=== PATIENT | male | born 1975 | race Caucasian/White ===

== ENCOUNTER → 2020-02-13 | Outpatient (CLI) | payer BC ==
[~2020-02-13] MED LIST: IOHEXOL 300 MG/ML 100ML VIAL. IV ONE
--- NOTE | 2020-02-13 08:43 | KCIC ---
EXAM: Orbital CT with intravenous contrast. HISTORY: Right-sided facial numbness and vision changes. TECHNIQUE: Computed tomographic images of the orbits were obtained following the demonstration of intravenous contrast. *One or more of the following individualized dose reduction techniques were utilized for this examination: 1. Automated exposure control. 2. Adjustment of the mA and/or kV according to patient size. 3. Use of iterative reconstruction technique. COMPARISON: None. FINDINGS: The globes, lenses, extraocular muscles and optic nerves are unremarkable. There is no infiltration of the retrobulbar fat. No orbital mass is seen. No convincing cellulitis is seen. There are small left and tiny right maxillary sinus mucous retention cysts. There is minimal maxillary sinus mucosal thickening. The ostiomeatal units are patent. There is no significant nasal septal deviation. The mastoid air cells are clear. The temporomandibular joints are intact. The visualized portions the brain demonstrate no mass effect or midline shift. There is no hydrocephalus. No suspicious enhancing lesion is seen. IMPRESSION: 1. No acute finding or CT correlate for reported right-sided facial numbness and vision changes. 2. Mild left and minimal right maxillary sinus disease. Electronically signed by: Ayanna Noe MD (02/13/2020 8:40 AM) [id number]
== END | disposition home or self-care (01) ==
LOC: KCIC CT 07:55
PROVIDERS: ATTEND Physician Assistant Medical
DX: J34.1 Cyst and mucocele of nose and nasal sinus (principal); J34.89 Other specified disorders of nose and nasal sinuses; H53.9 Unspecified visual disturbance; H92.09 Otalgia, unspecified ear
CPT/HCPCS: 70481; Q9967

== ENCOUNTER → 2020-03-15 | Outpatient (CLI) | payer BC ==
--- NOTE | 2020-03-15 11:02 | KCIC ---
CERVICAL SPINE WO CONTRAST DATE: 03/15/2020 8:45 AM INDICATION: Reason: CERVICAL PAIN / Spl. Instructions: Pt feels like he could pass out when he tilts his head backwards. NKI. / History: Pt c/o right sided neck discomfort but moreso a feeling of passing out. TECHNIQUE: Multiplanar multisequence magnetic resonance imaging of the cervical spine was performed without administration of intravenous contrast using the standard cervical spine protocol. COMPARISON: None. FINDINGS: The cervical spine is normally aligned. No acute fracture. Mild multilevel degenerative disc desiccation and disc height loss. No marrow replacing process to suggest malignancy. The spinal cord is normal in signal intensity. On the limited views of the cranial cavity and brain, the cerebellum and hilary have normal morphology and signal characteristics. No Chiari malformation. No soft tissue abnormality. Normal signal voids are present in the vertebral arteries. C2-3: Mild right facet arthropathy. No significant spinal canal stenosis or neural foraminal narrowing. C3-4: Uncovertebral hypertrophy. Mild bilateral facet arthropathy. Mild left neural foraminal narrowing. No spinal canal stenosis. C4-5: Uncovertebral hypertrophy. Mild facet arthropathy. Mild left neural foraminal narrowing. No spinal canal stenosis. C5-6: Uncovertebral hypertrophy. Mild facet arthropathy with some edema in the left facet joint. Mild bilateral neural foraminal narrowing. No spinal canal stenosis. C6-7: Uncovertebral hypertrophy. Mild left neural foraminal narrowing. No spinal canal stenosis. C7-T1: No significant spinal canal stenosis or neural foraminal narrowing. IMPRESSION: Mild cervical spondylosis, detailed level by level above. No high-grade spinal canal stenosis or high-grade neural foraminal narrowing. Electronically signed by: Moy Ruiz MD (03/15/2020 10:59 AM) [id number]
== END | disposition home or self-care (01) ==
LOC: KCIC MRI 08:19
PROVIDERS: ATTEND Physician Assistant
DX: M47.812 Spondylosis without myelopathy or radiculopathy, cervical region (principal); M50.30 Other cervical disc degeneration, unspecified cervical region; M48.02 Spinal stenosis, cervical region
CPT/HCPCS: 72141

== ENCOUNTER → 2020-04-24 | Outpatient (CLI) | payer BC ==
--- NOTE | 2020-04-24 13:53 | KCIC ---
EXAM: Brain MRI without contrast. HISTORY: Headaches. TECHNIQUE: Multiplanar, multisequence magnetic resonance imaging of the brain was performed without contrast. COMPARISON: None. FINDINGS: There is no restricted diffusion to suggest acute or subacute infarction. There is no susceptibility effect to suggest hemorrhage. There is no mass effect or midline shift. There is mild developmental asymmetry in the size of the left greater than right lateral ventricles. There is no hydrocephalus. There are multiple scattered foci of signal change within the left greater than right cerebral white matter. The orbits are unremarkable. There are left greater than right maxillary sinus mucous retention cysts. There is paranasal sinus mucosal thickening. The mastoid air cells are clear. There are normal flow voids within the cerebral vessels. There is no suspicious calvarial lesion. IMPRESSION: 1. No acute intracranial finding. 2. Scattered foci of signal change within the cerebral white matter, a nonspecific finding. The differential in a patient of this age includes changes due to chronic small vessel disease, chronic migraine headaches as well as demyelinating disease. Electronically signed by: Ayanna Noe MD (04/24/2020 1:51 PM) [id number]
== END | disposition home or self-care (01) ==
LOC: KCIC MRI 12:36
PROVIDERS: ATTEND Nurse Practitioner Family
DX: I73.9 Peripheral vascular disease, unspecified (principal); G37.9 Demyelinating disease of central nervous system, unspecified; G43.909 Migraine, unspecified, not intractable, without status migrainosus
CPT/HCPCS: 70551